=== PATIENT | male | born 1990 | race Caucasian/White ===

== ENCOUNTER 2019-04-25 05:22 | Emergency (ER) | payer OTHER ==
[~2019-04-25] VITALS: Ht 182.9 cm; Wt 104.3 kg
[2019-04-25 05:31] VITALS: Ht 182.9 cm; Wt 104.3 kg
[2019-04-25 06:45] VITALS: BP 130/68
== END 2019-04-25 06:45 | disposition home or self-care (01) ==
LOC: ED 05:22
DX: Z11.8 Encounter for screening for other infectious and parasitic diseases (principal)